=== PATIENT | male | born 1965 | race Hispanic/Latino ===

== ENCOUNTER 2017-08-13 09:00 | Emergency (ER) | payer MEDICARE ==
[~2017-08-13 09:00] MED LIST: DUTA.5 PO; GLAT20I SQ; GLAT40SY SQ; SOLI10TA PO; SOLI5 PO
[2017-08-13 09:46] LABS: BASOPHILS % (AUTO) 1.3 % (0.0-5.0); EOSINOPHILS % (AUTO) 0.1 % (0.0-8.0); HEMATOCRIT 40.8 % (42-54); LYMPHOCYTES % (AUTO) 3.4 % (21.0-51.0); MEAN CORPUSCULAR HEMOGLOBIN 32.2 pg (27.0-33.0); MEAN CORPUSCULAR VOLUME 92.2 fL (79-99); MONOCYTES % (AUTO) 6.5 % (3.0-13.0); NEUTROPHILS % (AUTO) 88.7 % (40.0-77.0); PLATELET COUNT (AUTO) 289 K/uL (130-400); RED BLOOD CELL COUNT(AUTO) 4.43 MIL/uL (4.50-6.20); RED CELL DISTRIBUTION WIDTH 14.2 % (11.0-15.5); WHITE BLOOD COUNT (AUTO) 16.9 K/uL (4.8-10.8)
[2017-08-13 10:52] LABS: BILIRUBIN,TOTAL 0.7 mg/dL (0.2-1.0); TOTAL PROTEIN, SERUM 7.7 g/dL (6.0-8.3)
[2017-08-13 11:10] LABS: RAPID GROUP A STREP NEGATIVE (NEGATIVE)
[2017-08-13 12:07] LABS: APPEARANCE,URINE Cloudy (CLEAR); BILIRUBIN,URINE Negative (NEGATIVE); COLOR,URINE Yellow (YELLOW); GLUCOSE, URINE (UA) Negative (NEGATIVE); KETONES,URINE Negative (NEGATIVE); LEUKOCYTE ESTERASE ,URINE Large (NEGATIVE); NITRATE,URINE Positive (NEGATIVE); OCCULT BLOOD,URINE Negative (NEGATIVE); PH,URINE 8.5 (5.0-8.0); PROTEIN,URINE POS 1+ (NEGATIVE)
[2017-08-13 12:26] LABS: BACTERIA,URINE Many /HPF (None Seen); RBC,URINE 0-1 /HPF (0-1); WBC,URINE 51-100 /HPF (0-1)
[2017-08-13 12:27] LABS: SQUAMOUS EPITHELIAL CELL,UR Rare /HPF (0-2); TRIPLE PHOSPHATE CRYSTAL,UR Moderate /LPF (None Seen)
== END 2017-08-13 13:18 | disposition home or self-care (01) ==
LOC: EDH 09:00
DX: R13.10 Dysphagia, unspecified (principal); Z88.0 Allergy status to penicillin
CPT/HCPCS: 36415; 71045; 80053; 81001; 83690; 85025; 87088; 87186; 87804; 87880; 93005

== ENCOUNTER 2018-06-04 00:37 | Emergency (ER) | payer MEDICARE ==
[2018-06-04 01:29] LABS: BILIRUBIN,URINE Negative (NEGATIVE); COLOR,URINE Yellow (YELLOW); GLUCOSE, URINE (UA) Negative (NEGATIVE); KETONES,URINE Negative (NEGATIVE); LEUKOCYTE ESTERASE ,URINE Large (NEGATIVE); NITRATE,URINE Negative (NEGATIVE); OCCULT BLOOD,URINE Large (NEGATIVE); PH,URINE 6.5 (5.0-8.0); PROTEIN,URINE POS 1+ (NEGATIVE); UROBILINOGEN,URINE 0.2 mg/dL (0.2-1.0)
[2018-06-04 01:31] LABS: APPEARANCE,URINE CLOUDY (CLEAR)
[2018-06-04 01:39] LABS: BACTERIA,URINE Many /HPF (None Seen); MUCUS,URINE Few LPF (None Seen); SQUAMOUS EPITHELIAL CELL,UR Few /HPF (0-2); WBC,URINE TNTC /HPF (0-1)
[2018-06-04] MEDS ORDERED: LIDOCAINE HCL-MPF 1% 2ML VIAL ONE (01:40)
[2018-06-04] MEDS ORDERED: CEFTRIAXONE SODIUM 1 GM ONE (01:42)
== END 2018-06-04 02:22 | disposition home or self-care (01) ==
LOC: EDH 00:37
DX: Z46.6 Encounter for fitting and adjustment of urinary device (principal); N39.0 Urinary tract infection, site not specified; G35 Multiple sclerosis; Z88.0 Allergy status to penicillin
CPT/HCPCS: 51702; 81001; 87077; 87088; 87186; 96372; 99284; J0696; J3490

== ENCOUNTER 2018-08-31 00:52 | Emergency (ER) | payer MEDICARE ==
[2018-08-31 01:56] LABS: BASOPHILS % (AUTO) 0.5 % (0.0-5.0); EOSINOPHILS % (AUTO) 1.9 % (0.0-8.0); HEMATOCRIT 42.7 % (42-54); LYMPHOCYTES % (AUTO) 11.8 % (21.0-51.0); MEAN CORPUSCULAR HEMOGLOBIN 32.1 pg (27.0-33.0); MEAN CORPUSCULAR HGB CONC 34.6 g/dL (32.0-36.0); MEAN CORPUSCULAR VOLUME 92.8 fL (79-99); NEUTROPHILS % (AUTO) 77.8 % (40.0-77.0); PLATELET COUNT (AUTO) 268 K/uL (130-400); RED CELL DISTRIBUTION WIDTH 14.8 % (11.0-15.5); WHITE BLOOD COUNT (AUTO) 8.6 K/uL (4.8-10.8)
[2018-08-31 01:56] LABS: BILIRUBIN,URINE Negative (NEGATIVE); COLOR,URINE Yellow (YELLOW); GLUCOSE, URINE (UA) Negative (NEGATIVE); KETONES,URINE Negative (NEGATIVE); LEUKOCYTE ESTERASE ,URINE Large (NEGATIVE); NITRATE,URINE Negative (NEGATIVE); OCCULT BLOOD,URINE Small (NEGATIVE); PROTEIN,URINE POS 2+ mg/dL (NEGATIVE); UROBILINOGEN,URINE 0.2 mg/dL (0.2-1.0)
[2018-08-31 01:57] LABS: APPEARANCE,URINE CLOUDY (CLEAR)
[2018-08-31 02:03] LABS: POTASSIUM 4.2 mmol/L (3.5-5.1)
[2018-08-31 02:37] LABS: BACTERIA,URINE Many /HPF (None Seen); WBC,URINE >100 /HPF (0-1)
== END 2018-08-31 02:47 | disposition home or self-care (01) ==
LOC: EDH 00:52
DX: T83.098A Other mechanical complication of other urinary catheter, initial encounter (principal); Z88.0 Allergy status to penicillin
CPT/HCPCS: 36415; 80048; 81001; 85025; 87077; 87088; 87186

== ENCOUNTER 2019-04-18 18:42 | Emergency (ER) | payer MEDICARE ==
[2019-04-18 20:16] LABS: BASOPHILS % (AUTO) 0.6 % (0.0-5.0); EOSINOPHILS % (AUTO) 1.4 % (0.0-8.0); HEMATOCRIT 39.6 % (42-54); LYMPHOCYTES % (AUTO) 15.9 % (21.0-51.0); MEAN CORPUSCULAR HEMOGLOBIN 31.3 pg (27.0-33.0); MEAN CORPUSCULAR HGB CONC 33.7 g/dL (32.0-36.0); MEAN CORPUSCULAR VOLUME 92.9 fL (79-99); MONOCYTES % (AUTO) 8.4 % (3.0-13.0); NEUTROPHILS % (AUTO) 73.7 % (40.0-77.0); NUCLEATED RED BLOOD CELLS 0.1 % (0.0-0.19); PLATELET COUNT (AUTO) 311 K/uL (130-400); RED BLOOD CELL COUNT(AUTO) 4.26 MIL/uL (4.50-6.20); RED CELL DISTRIBUTION WIDTH 15.9 % (11.0-15.5); WHITE BLOOD COUNT (AUTO) 6.3 K/uL (4.8-10.8)
[2019-04-18 20:23] LABS: POTASSIUM 4.4 mmol/L (3.5-5.1)
[2019-04-18 20:27] LABS: APPEARANCE,URINE Cloudy (CLEAR); BILIRUBIN,URINE Negative (NEGATIVE); COLOR,URINE Yellow (YELLOW); GLUCOSE, URINE (UA) Negative (NEGATIVE); KETONES,URINE Negative (NEGATIVE); LEUKOCYTE ESTERASE ,URINE Large (NEGATIVE); NITRATE,URINE Positive (NEGATIVE); OCCULT BLOOD,URINE Negative (NEGATIVE); PH,URINE 7.5 (5.0-8.0); PROTEIN,URINE Trace mg/dL (NEGATIVE)
[2019-04-18 20:38] LABS: ALBUMIN 3.6 g/dL (3.5-5.0); BILIRUBIN,TOTAL 0.3 mg/dL (0.2-1.0); CREATININE 0.8 mg/dL (0.5-1.5); TOTAL PROTEIN, SERUM 7.2 g/dL (6.0-8.3)
[2019-04-18 21:05] LABS: BACTERIA,URINE Many /HPF (None Seen); MUCUS,URINE Few LPF (None Seen); SQUAMOUS EPITHELIAL CELL,UR 0-2 /HPF (0-2)
[2019-04-18 21:06] LABS: TRIPLE PHOSPHATE CRYSTAL,UR Moderate /LPF (None Seen)
[2019-04-18] MEDS ORDERED: SODIUM CHLORIDE 0.9% 1000ML 1,000 ML IV ONE (21:14)
[2019-04-18] MEDS ORDERED: SODIUM CHLORIDE 0.9% 50 ML IV ONE (21:14)
[2019-04-18] MEDS ORDERED: CEFTRIAXONE SODIUM 1 GM ONE (21:15)
== END 2019-04-18 22:32 | disposition home or self-care (01) ==
LOC: EDH 18:42
DX: N39.0 Urinary tract infection, site not specified (principal); G35 Multiple sclerosis; Z88.0 Allergy status to penicillin
CPT/HCPCS: 36415; 80053; 81001; 85025; 87077; 87088; 87186; 96374; 99284; J0696; J7030; 96365

== ENCOUNTER 2019-10-12 10:30 | Inpatient (IN) | payer MEDICARE ==
[~2019-10-12] VITALS: Ht 170.2 cm; Wt 47.7 kg
[2019-10-12 11:01] LABS: APPEARANCE,URINE Cloudy (CLEAR); BILIRUBIN,URINE Negative (NEGATIVE); COLOR,URINE Yellow (YELLOW); GLUCOSE, URINE (UA) Negative (NEGATIVE); KETONES,URINE 15 mg/dL (NEGATIVE); LEUKOCYTE ESTERASE ,URINE Large (NEGATIVE); NITRATE,URINE Positive (NEGATIVE); OCCULT BLOOD,URINE Trace (NEGATIVE); PROTEIN,URINE POS 1+ mg/dL (NEGATIVE)
[2019-10-12 11:06] LABS: CREATININE 0.8 mg/dL (0.5-1.5); POTASSIUM 4.1 mmol/L (3.5-5.1)
[2019-10-12 11:12] LABS: ALBUMIN 3.4 g/dL (3.5-5.0); BILIRUBIN,TOTAL 0.6 mg/dL (0.2-1.0); TOTAL PROTEIN, SERUM 7.5 g/dL (6.0-8.3)
[2019-10-12 11:21] LABS: BASOPHILS % (AUTO) 0.2 % (0.0-5.0); EOSINOPHILS % (AUTO) 0.2 % (0.0-8.0); HEMATOCRIT 39.4 % (42-54); LYMPHOCYTES % (AUTO) 5.4 % (21.0-51.0); MEAN CORPUSCULAR HEMOGLOBIN 30.8 pg (27.0-33.0); MEAN CORPUSCULAR HGB CONC 33.2 g/dL (32.0-36.0); MEAN CORPUSCULAR VOLUME 92.7 fL (79-99); NEUTROPHILS % (AUTO) 85.9 % (40.0-77.0); PLATELET COUNT (AUTO) 269 K/uL (130-400); RED BLOOD CELL COUNT(AUTO) 4.25 MIL/uL (4.50-6.20); WHITE BLOOD COUNT (AUTO) 11.9 K/uL (4.8-10.8)
[2019-10-12 11:23] LABS: INR 0.87 (0.85-1.15); PARTIAL THROMBOPLASTIN TIME 32.9 SEC (26.3-35.5); PROTHROMBIN TIME 9.4 SEC (9.6-11.6)
[2019-10-12 11:33] LABS: BACTERIA,URINE Moderate /HPF (None Seen); RBC,URINE 0-1 /HPF (0-1); SQUAMOUS EPITHELIAL CELL,UR None Seen /HPF (0-2); WBC,URINE 51-100 /HPF (0-1)
[2019-10-12] MEDS ORDERED: SODIUM CHLORIDE 0.9% 1000ML 2,000 ML IV ONE (11:36)
[2019-10-12] MEDS ORDERED: LEVOFLOXACIN 500 MG/D5W 100 ML 100 ML ONE (11:37)
[2019-10-12] MEDS: DEXTROSE 5 %-0.45 % NACL 1,000 ML IV SCH (12:30)
[2019-10-12] MEDS ORDERED: DEXTROSE 5 %-0.45 % NACL 1,000 ML IV ONE (15:37)
[2019-10-12 17:36] VITALS: BP 124/74
[2019-10-12 19:54] VITALS: BP 140/78
[2019-10-12] MEDS ORDERED: MIRA25TA PO (21:18)
[2019-10-12 23:30] VITALS: BP 125/78
[2019-10-13 04:00] VITALS: BP 126/68
[2019-10-13 04:54] LABS: BASOPHILS % (AUTO) 0.2 % (0.0-5.0); EOSINOPHILS % (AUTO) 1.6 % (0.0-8.0); HEMATOCRIT 39.3 % (42-54); LYMPHOCYTES % (AUTO) 6.6 % (21.0-51.0); MEAN CORPUSCULAR HEMOGLOBIN 31.3 pg (27.0-33.0); MEAN CORPUSCULAR HGB CONC 33.8 g/dL (32.0-36.0); MEAN CORPUSCULAR VOLUME 92.5 fL (79-99); MONOCYTES % (AUTO) 10.1 % (3.0-13.0); NEUTROPHILS % (AUTO) 81.4 % (40.0-77.0); PLATELET COUNT (AUTO) 248 K/uL (130-400); RED BLOOD CELL COUNT(AUTO) 4.25 MIL/uL (4.50-6.20); RED CELL DISTRIBUTION WIDTH 14.9 % (11.0-15.5); WHITE BLOOD COUNT (AUTO) 8.2 K/uL (4.8-10.8)
[2019-10-13 05:07] LABS: BILIRUBIN,TOTAL 0.7 mg/dL (0.2-1.0); CREATININE 0.7 mg/dL (0.5-1.5); POTASSIUM 3.9 mmol/L (3.5-5.1); TOTAL PROTEIN, SERUM 7.2 g/dL (6.0-8.3)
[2019-10-13 07:46] VITALS: BP 141/83
[2019-10-13] MEDS: DEXTROSE 5 %-0.45 % NACL 1,000 ML IV SCH (09:07)
[2019-10-13] MEDS: LEVOFLOXACIN 500 MG/D5W 100 ML 100 ML IV SCH (09:07)
[2019-10-13 11:23] VITALS: BP 120/66
[2019-10-13 16:12] VITALS: BP 125/59
--- NOTE | 2019-10-13 16:43 | NUR ---
INITIAL: Met w pt and mother @ the bedside to discuss dcp. Per Alie(pts mother), prior to admission pt was living w both parents. Pt is mostly wc/bed bound and requires assistance w ADLs. Pt has provider services from [facility] but mother is unable to recall # of hours. Pt has at home a tub bench, hosp bed, and wc. Per Mrs Graff, DCP is for pt to return home at dc. She mentions that they will continue to assist pt as needed. CM to continue to follow and wait for Md recommendations. Addendum: 10/13/19 at 1649 by ROSAURA TOUSSAINT Amended: Links added.
[2019-10-13] MEDS: LACTULOSE 20 GM/30 ML UDCUP PO SCH (19:58)
[2019-10-13 20:00] VITALS: BP 113/69
[2019-10-13 23:35] VITALS: BP 129/68
[2019-10-14] MEDS: DEXTROSE 5 %-0.45 % NACL 1,000 ML IV SCH ×3 (03:32→22:12)
[2019-10-14 04:00] VITALS: BP 140/64
[2019-10-14 05:16] LABS: HEMATOCRIT 39.1 % (42-54); MEAN CORPUSCULAR HEMOGLOBIN 31.4 pg (27.0-33.0); MEAN CORPUSCULAR VOLUME 92.4 fL (79-99); PLATELET COUNT (AUTO) 266 K/uL (130-400); RED BLOOD CELL COUNT(AUTO) 4.23 MIL/uL (4.50-6.20); WHITE BLOOD COUNT (AUTO) 8.5 K/uL (4.8-10.8)
[2019-10-14 05:24] LABS: CREATININE 0.8 mg/dL (0.5-1.5); POTASSIUM 3.8 mmol/L (3.5-5.1)
[2019-10-14 05:35] LABS: BAND NEUTROPHILS % (MANUAL) 23 % (0-2); LYMPHOCYTES % (MANUAL) 10 % (22-44); MAN.DIFF COMMENT-IMPRESSION MANUAL DIFFERENTIAL; MONOCYTES % (MANUAL) 3 % (2-9); PLATELET MORPHOLOGY COMMENT ADEQUATE; SEGMENTED NEUTROPHILS % 64 % (40-70)
[2019-10-14 07:30] VITALS: BP 121/64
[2019-10-14] MEDS: LACTULOSE 20 GM/30 ML UDCUP PO SCH ×2 (09:00→20:54)
[2019-10-14] MEDS: LEVOFLOXACIN 500 MG/D5W 100 ML 100 ML IV SCH (09:09)
[2019-10-14] MEDS ORDERED: GADODIAMIDE 10 MMOL/20 ML VIAL IV ONE (10:36)
[2019-10-14 11:00] VITALS: BP 125/77
--- NOTE | 2019-10-14 15:50 | NUR ---
NUTRITION EDUCATION KATE left Malnutrition/High Pro/[employer] Education in Pt chart. KATE attempt at phone education x2 - no answer. RD to follow up. Addendum: 10/14/19 at [address] Amended: Links added.
--- NOTE | 2019-10-14 15:55 | NUR ---
RD NOTIFICATION Pt admitted with UTI. History of Multiple Sclerosis. RD attempt to contact Pt via phone x2, secondary to Isolation protocol. No answer. Malnutrition education left in Pt chart. Pt with poor PO intake (25%). Ensure TID with meals in place. Recommend add snacks between meals Nutrition education placed in Pt chart. RD to follow up. Addendum: 10/14/19 at [address] RD Amended: Links added.
[2019-10-14 16:00] VITALS: BP 134/72
--- NOTE | 2019-10-14 17:08 | NUR ---
[id number] patient's mother signed IM Letter. I faxed IM Letter to [phone] and placed in chart under consent tab.
[2019-10-14 20:23] VITALS: BP 115/64
[2019-10-15 00:05] VITALS: BP 134/74
[2019-10-15 04:38] LABS: BASOPHILS % (AUTO) 0.4 % (0.0-5.0); EOSINOPHILS % (AUTO) 0.7 % (0.0-8.0); HEMATOCRIT 36.5 % (42-54); LYMPHOCYTES % (AUTO) 8.1 % (21.0-51.0); MEAN CORPUSCULAR HEMOGLOBIN 30.9 pg (27.0-33.0); MEAN CORPUSCULAR HGB CONC 33.7 g/dL (32.0-36.0); MEAN CORPUSCULAR VOLUME 91.7 fL (79-99); MONOCYTES % (AUTO) 16.1 % (3.0-13.0); NEUTROPHILS % (AUTO) 74.3 % (40.0-77.0); PLATELET COUNT (AUTO) 270 K/uL (130-400); RED BLOOD CELL COUNT(AUTO) 3.98 MIL/uL (4.50-6.20); RED CELL DISTRIBUTION WIDTH 14.7 % (11.0-15.5); WHITE BLOOD COUNT (AUTO) 7.2 K/uL (4.8-10.8)
[2019-10-15 04:59] LABS: ALBUMIN 2.3 g/dL (3.5-5.0); BILIRUBIN,TOTAL 0.8 mg/dL (0.2-1.0); CREATININE 0.7 mg/dL (0.5-1.5); POTASSIUM 3.6 mmol/L (3.5-5.1); TOTAL PROTEIN, SERUM 6.5 g/dL (6.0-8.3)
[2019-10-15] MEDS: DEXTROSE 5 %-0.45 % NACL 1,000 ML IV SCH ×2 (06:34→16:34)
[2019-10-15 07:30] VITALS: BP 132/78
[2019-10-15] MEDS: LACTULOSE 20 GM/30 ML UDCUP PO SCH ×2 (09:00→21:00)
[2019-10-15] MEDS: LEVOFLOXACIN 500 MG/D5W 100 ML 100 ML IV SCH (09:14)
[2019-10-15 11:00] VITALS: BP 122/71
--- NOTE | 2019-10-15 18:26 | NUR ---
CHART REVIEWED WAITING ON CULTURES FOR AFTERCARE
[2019-10-15 20:20] VITALS: BP 139/75
--- NOTE | 2019-10-15 22:36 | NUR ---
PT SATTING 91% ON [address] ESPINOSA PAGED ORDERS IN CPOE
[2019-10-15] MEDS ORDERED: IPRATROPIUM/ALBUTEROL SULFATE 3 ML SOLUTION IH ONE (22:43)
[2019-10-15] MEDS ORDERED: ALBUTEROL INHALER 90MCG/INH IH PRN (22:45)
[2019-10-15] MEDS ORDERED: ALBUTEROL SULFATE 0.083% 2.5 MG/3 ML INH IH ONE (22:48)
[2019-10-16 00:15] VITALS: BP 108/63
[2019-10-16 04:22] VITALS: BP 118/64
[2019-10-16 04:37] LABS: HEMATOCRIT 34.6 % (42-54); MEAN CORPUSCULAR HEMOGLOBIN 30.6 pg (27.0-33.0); MEAN CORPUSCULAR HGB CONC 33.8 g/dL (32.0-36.0); MEAN CORPUSCULAR VOLUME 90.6 fL (79-99); PLATELET COUNT (AUTO) 289 K/uL (130-400); RED BLOOD CELL COUNT(AUTO) 3.82 MIL/uL (4.50-6.20); RED CELL DISTRIBUTION WIDTH 14.6 % (11.0-15.5); WHITE BLOOD COUNT (AUTO) 7.5 K/uL (4.8-10.8)
[2019-10-16 04:58] LABS: B-TYPE NATRIURETIC PEPTIDE 26 pg/mL (0-100)
[2019-10-16 05:00] LABS: BILIRUBIN,TOTAL 0.7 mg/dL (0.2-1.0); CREATININE 0.7 mg/dL (0.5-1.5); POTASSIUM 3.4 mmol/L (3.5-5.1); TOTAL PROTEIN, SERUM 6.1 g/dL (6.0-8.3)
[2019-10-16 06:28] LABS: BAND NEUTROPHILS % (MANUAL) 31 % (0-2); LYMPHOCYTES % (MANUAL) 14 % (22-44); METAMYELOCYTES % 3 % (0-0); MONOCYTES % (MANUAL) 23 % (2-9); SEGMENTED NEUTROPHILS % 29 % (40-70)
[2019-10-16 06:29] LABS: MAN.DIFF COMMENT-IMPRESSION MANUAL DIFFERENTIAL; PLATELET MORPHOLOGY COMMENT ADEQUATE
[2019-10-16] MEDS: ALBUTEROL SULFATE 0.083% 2.5 MG/3 ML INH IH PRN ×2 (06:50→18:21)
[2019-10-16 07:53] VITALS: BP 144/75
[2019-10-16] MEDS: LEVOFLOXACIN 500 MG/D5W 100 ML 100 ML IV SCH (08:38)
[2019-10-16] MEDS: DEXTROSE 5 %-0.45 % NACL 1,000 ML IV SCH (08:38)
[2019-10-16] MEDS: LACTULOSE 20 GM/30 ML UDCUP PO SCH ×2 (08:38→21:00)
--- NOTE | 2019-10-16 10:37 | NUR ---
UCUL RESISTANT TO LEVAQUIN-DISCUSSED W REVIEWED UCUL WITH , ( DID THE PRIMARY RN EARLIER) RESPONDED DONOT STOP THE LEVAQUIN PATIENT IS IMROVING CLINICALLY, PT WILL GO HOME ON MACROBID, LES FOLLOWS AND LOOKS AFTER THE CHRONIC ESBL UTI NOTED THAT NOTS SAY POSSIBLE ASPIRATION
[2019-10-16 11:03] VITALS: BP 145/76
[2019-10-16 16:00] VITALS: BP 133/72
--- NOTE | 2019-10-16 16:06 | NUR ---
NEW UCX DR SALDANA CALLED REGARDING PT, ACCORDING TO HER, FAMILY MEMBERS HAVE BEEN CALLING HER OFFICE REGARDING THE CHAPMAN CATHETER CHANGE THAT WAS DUE TODAY IN HER OFFICE. DR SALDANA GAVE ME AN ORDER TO CHANGE CHAPMAN CATHETER AND TO GET A NEW URINE CULTURE. ACCORDING TO HER, ON PATIENT'S WITH A CHRONIC CHAPMAN USE, THE CATHETER NEEDS TO BE CHANGED BEFORE YOU GET A URINE CULTURE. CALLED DR ESPINOSA AND INFORMED HIM OF HER RECOMMENDATIONS, (DR SALDANA IS NOT CONSULTED) AND HE AGREED TO CHANGE THE CATHETER AND GET A NEW UCX.
--- NOTE | 2019-10-16 17:55 | NUR ---
ORDER REC'D FOR HOME HEALTH AND O2 VERBAL SABI REC'D FOR [facility] FOR SPEECH THERAPY AND APRIA- PENIDNG REFERRAL SPOKE TO [facility] ON PHONE- FOR SPEECH THERAPY, PT WILL NEED TO HAVE EVAL DONE HERE AND - IF [facility] RECOMMENDED BY DESIGN LEADER, DAVID NEED THAT DONE ALOS, TO DEFINE THERPAY GOALS AT HOME. CALL TO KAYLA LEW, ORDER RECD,
[2019-10-16 20:00] VITALS: BP 124/70
[2019-10-17] VITALS (7 sets, daily range): BP systolic 93–125; BP diastolic 35–77
[2019-10-17 04:12] LABS: BASOPHILS % (AUTO) 0.6 % (0.0-5.0); EOSINOPHILS % (AUTO) 0.3 % (0.0-8.0); LYMPHOCYTES % (AUTO) 6.1 % (21.0-51.0); MEAN CORPUSCULAR HEMOGLOBIN 30.9 pg (27.0-33.0); MEAN CORPUSCULAR HGB CONC 33.3 g/dL (32.0-36.0); MEAN CORPUSCULAR VOLUME 92.8 fL (79-99); NEUTROPHILS % (AUTO) 74.3 % (40.0-77.0); PLATELET COUNT (AUTO) 326 K/uL (130-400); RED BLOOD CELL COUNT(AUTO) 3.88 MIL/uL (4.50-6.20); RED CELL DISTRIBUTION WIDTH 14.6 % (11.0-15.5); WHITE BLOOD COUNT (AUTO) 9.5 K/uL (4.8-10.8)
[2019-10-17 04:32] LABS: ALBUMIN 1.9 g/dL (3.5-5.0); BILIRUBIN,TOTAL 0.6 mg/dL (0.2-1.0); CREATININE 0.7 mg/dL (0.5-1.5); POTASSIUM 3.5 mmol/L (3.5-5.1)
[2019-10-17] MEDS: ALBUTEROL SULFATE 0.083% 2.5 MG/3 ML INH IH PRN ×2 (06:57→18:20)
[2019-10-17] MEDS: LEVOFLOXACIN 500 MG/D5W 100 ML 100 ML IV SCH (08:51)
[2019-10-17] MEDS: DEXTROSE 5 %-0.45 % NACL 1,000 ML IV SCH ×2 (08:51→14:32)
[2019-10-17] MEDS: LACTULOSE 20 GM/30 ML UDCUP PO SCH ×3 (08:52→21:10)
--- NOTE | 2019-10-17 09:45 | NUR ---
DYSPHAGIA EVAL COMPLETED. S/S OF ASPIRATION AT THIS TIME (Pt WAS FULLY ALERT AND FOLLOWING BASIC COMMANDS DURING EVALUATION). RECOMMEND REGULAR SOLIDS, THIN LIQUIDS, AND PILLS WHOLE WITH LIQUIDS TOLERATED WHEN FULLY ALERT. FAMILY MEMBERS AT BEDSIDE REPORT THAT Pt PRESENTS WITH SWALLOWING PROBLEMS WHEN NOT FULLY ALERT. IF Pt'S STATUS CHANGES A [facility] ALTERNATE MEANS OF NUTRITION/HYDRATION MAY BE NECESSARY TO PREVENT ASPIRATION. COMPUTER EDUCATION TEACHER EDUCATED Pt ON RISKS AND CONSEQUENCES OF ASPIRATION. ALL QUESTIONS ANSWERED AT THIS TIME. COMPUTER EDUCATION TEACHER COORDINATED WITH NURSE LYN. Addendum: 10/17/[address] [facility]RISTA Amended: Links added.
--- NOTE | 2019-10-17 12:31 | NUR ---
RD FOLLOW UP Pt tolerating current diet order with no report of GI distress. Improved PO intake at 50-75%. Mild-moderate PCM. Malnutrition education provided. Recommend add 60mL ProMod QD Recommend continue current diet order RD to continue to monitor. Please notify as additional nutrition concerns arise. Thank you. Addendum: 10/17/19 at [address] Amended: Links added.
--- NOTE | 2019-10-17 14:17 | NUR ---
REFERRAL IN PROCESS- WAITING FOR SCRIPT TO BE RETURNED BY DR. ESPINOSA FOR O2 HAVE BEEN IN COMMUNICATION WITH [facility] RE SCRIPT/ QUALIFYING DIAGNOSES [facility] HAS ACCEPTED PATIENT BUT WANTS MORE NOTES FROM SPEECH- WILL SEND
--- NOTE | 2019-10-17 14:21 | NUR ---
EXPETED TO [facility] [phone] AND [facility] FOR CONCENTRATOR Addendum: 10/17/19 at 1422 by MAYLIN PIERRE RN CM Amended: Links added.
[2019-10-18 03:34] VITALS: BP 130/76
[2019-10-18] MEDS: DEXTROSE 5 %-0.45 % NACL 1,000 ML IV SCH (03:40)
[2019-10-18] MEDS: ALBUTEROL SULFATE 0.083% 2.5 MG/3 ML INH IH PRN (06:46)
[2019-10-18 08:00] VITALS: BP_SYST 118; BP_SYST 123; BP_DIAS 54; BP_DIAS 76
[2019-10-18] MEDS: LACTULOSE 20 GM/30 ML UDCUP PO SCH (09:00)
[2019-10-18] MEDS: LEVOFLOXACIN 500 MG/D5W 100 ML 100 ML IV SCH (09:00)
[2019-10-18 11:00] VITALS: BP 112/59
--- NOTE | 2019-10-18 11:50 | NUR ---
SWALLOWING TREATMENT COMPLETED S: Pt IN BED EATING LUNCH. FATHER AT BEDSIDE ASSISTING WITH FEEDING. Pt COOPERATIVE WITH THERAPEUTIC SWALLOWING GOALS. Pt ALERT AND IN GOOD RESPIRATORY STATUS TO PROCEED WITH THERAPY. 0: Pt CURRENTLY TARGETING SWALLOWING GOALS, RESULTS ARE FOLLOWS: 1. Pt PARTICIPATED IN LARYNGEAL ELEVATION/EXCURSION EXERCISES WITH 90% ACCURACY. 2. Pt PARTICIPATED IN TONGUE BASE RETRACTION EXERCISES WITH 80% ACCURACY. 3. Pt PARTICIPATED IN ORAL MOTOR EXERCISES WITH 100% ACCURACY. 4. Pt TOLERATING REGULAR SOLIDS AND THIN LIQUIDS WITH NO S/S OF ASPIRATION. 5. SKILLED EDUCATION Pt/FAMILY/STAFF: COMPLETED A: DRYING EQUIPMENT OPERATOR EDUCATED Pt AND FATHER ON RISKS AND CONSEQUENCES OF ASPIRATION. Pt AND FATHER VERBALIZED UNDERSTANDING AND COOPERATION WITH SWALLOWING GOALS. P: RECOMMEND THE CONTINUATION OF PLAN OF CARE. DRYING EQUIPMENT OPERATOR COORDINATED WITH NURSE. DRYING EQUIPMENT OPERATOR WILL CONTINUE TO FOLLOW Pt DURING THE LENGTH OF STAY IN THE HOSPITAL TO CONTINUE ADDRESSING SWALLOWING GOALS. Addendum: 10/18/[address] ALLI GOODWIN Amended: Links added.
[2019-10-18] MEDS ORDERED: MEROPENEM 1 GM VIAL IVP SCH (14:00)
--- NOTE | 2019-10-18 16:41 | NUR ---
DC INSTRUCTIONS GIVEN TO PATIENT AND FAMILY USING TEACH BACK, IV CATHETER REMOVED INTACT NO BLEEDING NOTED, REPORT GIVEN TO TATYANA GASCA AT [facility].
== END 2019-10-18 17:15 | disposition home health service (06) | DRG 177 ==
LOC: EDH 10:30 → OBSVTOIN 12:03 → EDHIP 12:03 → 3AH 17:34
PROVIDERS: ADMIT Internal Medicine; ATTEND Internal Medicine
DX: J69.0 Pneumonitis due to inhalation of food and vomit (principal); J96.91 Respiratory failure, unspecified with hypoxia; E43 Unspecified severe protein-calorie malnutrition; N39.0 Urinary tract infection, site not specified; R64 Cachexia; Z16.12 Extended spectrum beta lactamase (ESBL) resistance; Z68.1 Body mass index [BMI] 19.9 or less, adult; G35 Multiple sclerosis; E86.0 Dehydration; R13.10 Dysphagia, unspecified; J98.4 Other disorders of lung; Z74.01 Bed confinement status; Z88.0 Allergy status to penicillin; Z88.2 Allergy status to sulfonamides; Z88.8 Allergy status to other drugs, medicaments and biological substances
CPT/HCPCS: 36415; 70553; 71045; 72141; 74021; 80048; 80053; 81001; 82550; 83605; 83880; 84484; 85025; 85610; 85730; 87040; 87077; 87088; 87186; 87804; 92526; 92610; 93005; 94640; 94664; 94760; A4344; A9579; G0378; J1956; J7030; J7042